=== PATIENT | female | born 1970 | race Caucasian/White ===

== ENCOUNTER 2018-10-19 08:49 | Emergency (ER) | payer SELFPAY ==
[~2018-10-19] VITALS: Ht 152.4 cm; Wt 54.4 kg
[2018-10-19] MEDS ORDERED: INDOMETHACIN50 MG PO (09:33)
[2018-10-19] MEDS ORDERED: AMOXICILLIN500 MG PO (09:33)
== END 2018-10-19 09:40 | disposition home or self-care (01) ==
LOC: ED 08:49
DX: K08.89 Other specified disorders of teeth and supporting structures (principal); F17.200 Nicotine dependence, unspecified, uncomplicated
CPT/HCPCS: 99282

== ENCOUNTER 2019-10-07 20:28 | Emergency (ER) | payer BC ==
[~2019-10-07] VITALS: Ht 152.4 cm; Wt 54.4 kg
[~2019-10-07 20:28] MED LIST: AMOXICILLIN500 MG PO; INDOMETHACIN50 MG PO
== END 2019-10-07 22:49 | disposition home or self-care (01) ==
LOC: ED 20:28
DX: R30.0 Dysuria (principal); R11.0 Nausea; R10.9 Unspecified abdominal pain; Z87.891 Personal history of nicotine dependence
CPT/HCPCS: 36415; 80053; 81001; 83690; 85025; 99284

== ENCOUNTER 2020-07-07 12:25 | Day surgery (SDC) | payer BC ==
[~2020-07-07] VITALS: Ht 152.4 cm; Wt 54.4 kg
--- NOTE | 2020-07-07 17:56 | NUR ---
50YR OLD FEMALE, BROUGHT TO ROOM 119 VIA WC FROM DAY SURGERY, PT IS A/O, DENIES ANY DIFFICULTY BREATHING, OXIMETER 97% ON RA, B/P 114/58, P 77, R 14 T 99.0. PT HOLDING FOR UPPER ENDOSCOPY AND FOREIGN BODY REMOVAL @ 1999. PT ATE STEAK. ORIENTED TO ROOM AND CALL LIGHT. WATCHING TV. DENIES ANY NEEDS.
--- NOTE | 2020-07-07 18:08 | NUR ---
CONT. PULSE OXIMETER PLACED, 98% ON RA. CALL LIGHT IN EASY REACH, DENIES ANY NEEDS.
--- NOTE | 2020-07-07 19:10 | NUR ---
uP IN CHAIR, WATCHING TV, ROOM AIR, NPO WAITING TO GO TO SURGERY, DENIES C/O SWALLOWING PROBLEMS AT THIS TIME, DID OWN MOUTH CARE. IVF INFUSING, NO C/O SOB , CHOCKING OT SWALLOWING PROBLEMS
--- NOTE | 2020-07-07 19:50 | NUR ---
VITALS DONE PRIOR TO PT LEAVING FOR OPERATION, NO FURHTER NEEDS AT THIS TIME
--- NOTE | 2020-07-07 20:16 | NUR ---
TO OR VIA STRETCHER WITH REAL ESTATE EXECUTIVE ASSISTANT,
--- NOTE | 2020-07-07 20:51 | NUR ---
07/07/202050 Sheets,Eula 204 PT ARRIVED TO PACU PT TALKING TO RN. PT DENIES PAIN AND NAUSEA. VSS.
--- NOTE | 2020-07-07 21:11 | NUR ---
2109 - back from or, alert and oriented, up to br, rac iv infusing.
--- NOTE | 2020-07-07 22:00 | NUR ---
PT UP TO VOID AT THIS TIME, NOW BACK IN BED, PT STATES SHE IS WORKING ON SMALL SIPS ABOUT EVERY TEN MINUTES, DENIES FURHTER NEEDS AT THIS TIME
--- NOTE | 2020-07-07 22:46 | NUR ---
pT UP TO BR, VOIDED AND DRESSED UP. READY FOR DC, SL R AC, REMOVED, INTACT IV. NO C/O PAIN, DRY COUGH PRESENT, TOLERATING LIQUIDS WELL. DC INSTRUCTIONS GIVEN VERBAL AND WRITTEN, RETURN BACK VERBAL INSTRUCTIONS. STATED UNDERSTANDING
--- NOTE | 2020-07-07 22:50 | NUR ---
PT DOWN THE REYNA FOR DISCHARGE, INTO SON'S CAR
--- NOTE | 2020-07-07 22:51 | NUR ---
2250 - DC HOME VIA W/C TO HOME IN PROIVATE CAR, NO C/O PAIN, ALERT AND ORIENTED, NO SWALLOW INSTRUCTIONS
--- NOTE | 2020-07-07 22:52 | NUR ---
2250 - dc home via w/c to home in private car with all belongings and dc instrutions. no swallowing c/o.
--- NOTE | 2020-07-08 09:55 | OR ---
[facility] [address], [place] [address] Signed DATE OF OPERATION: 07/07/2020 SURGEON: Tristen Hwang MD PREOPERATIVE DIAGNOSIS: Esophageal foreign body (steak). POSTOPERATIVE DIAGNOSES: 1. Esophageal foreign body (steak). 2. Mild distal gastritis. PROCEDURE: EGD with foreign body removal with CLOtest and biopsies of the antrum. ESTIMATED BLOOD LOSS: None. INDICATIONS: Dyan is a 50-year-old female who had some trouble with solid foods getting stuck for the last few months. Today at lunch, she was eating steak and it became lodged in her esophagus. She felt like it was in the mid esophagus. She came to the emergency room for evaluation. I was actually called urgently to the emergency room by ER doctor to see her. She was actually doing well by the time I came down the hallway. She was sitting in bed with no respiratory difficulties whatsoever. We had planned to take her directly over to the operating room earlier today for her upper endoscopy. However, there were a couple of elective cases still going and we got bumped by an emergent . In the meantime, we placed her down on the floor with some IV fluids with plans to perform the procedure as soon as we had our crew available. I had explained to Dyan actually this is quite common. She was quite concerned there could be cancer. In fact, I have been to find cancer in these patients acutely. We had discussed upper endoscopy in detail. We reviewed the nature of the test along with its risks including, but not limited to gas bloating, crampy abdominal pain, bleeding, perforation requiring surgery, and missed diagnosis. As always, to protect the airway, we have an anesthesia provider help this in these situations with general endotracheal tube intubation. She had expressed understanding and wished to proceed. PROCEDURE NOTE: Dyan was taken to the endoscopy suite and placed in the supine semi-recumbent position. She was placed under general endotracheal tube anesthesia. The adult gastroscope was then introduced and advanced under direct visualization of camera without difficulty. Electronically Signed By: TRISTEN HWANG MD 07/08/20 0955 PATIENT NAME: DYAN ROB OPERATIVE REPORT DATE OF : 68 REPORT #: [id number] PHYSICIAN: TRISTEN HWANG MD PCP: NO PRIMARY CARE PHYSICIAN REPORT IS CONFIDENTIAL AND NOT TO BE RELEASED WITHOUT AUTHORIZATION [facility] [address], [place] [address] Signed We saw the steak right at the GE junction. It was a bit loose, so we actually captured the whole piece with our basket and brought it out back through the oropharynx. We reintroduced our scope and as we went through the GE junction, we did not see any obvious stricture or tumor. Very minimal inflammation. We could see that she had just very minimal amount of inflammatory changes in the distal stomach. Consequently, we took a biopsy of the antrum for CLOtest as well as pathologic review. The pyloric channel and the duodenum were unremarkable. The scope was brought back in the stomach. Upon retroflexion of the scope, we did not see any obvious hiatal hernia or issues around the cardia. The scope was withdrawn back up through the area of the GE junction, which was compliant without stricture. Really, no disruption to the Z-line. No Agrawal's mucosa. No distal esophagitis other than a little irritation from the piece of steak. The middle and upper esophagus were unremarkable. After this, the gas had been suctioned out and the gastroscope removed. Dyan tolerated the procedure quite well. She was weaned from anesthesia, extubated in the endoscopy suite and taken to the recovery room in stable condition. Tristen Hwang MD ALB/MODL /[id number] Copies: ~ Electronically Signed By: TRISTEN HWANG MD 07/08/20 0955 PATIENT NAME: DYAN ROB OPERATIVE REPORT DATE OF : 68 REPORT #: [id number] PHYSICIAN: TRISTEN HWANG MD PCP: NO PRIMARY CARE PHYSICIAN REPORT IS CONFIDENTIAL AND NOT TO BE RELEASED WITHOUT AUTHORIZATION
--- NOTE | 2020-07-08 09:55 | CONS ---
[facility] [address] [place], [place] [address] Signed DATE OF CONSULTATION: 07/07/2020 CHIEF COMPLAINT: Esophageal foreign body (steak). HISTORY OF PRESENT ILLNESS: Dyan is a 50-year-old female, who does smoke, but does not drink. She said the last several months she has been having trouble with solids getting stuck in her mid esophageal area. Today, she ate a single piece of steak at lunch and she feels like it is stuck in her mid esophagus. After a few minutes then she has to spit up the saliva. She came to emergency room for evaluation. She is pretty miserable overall, but it seems to be doing better at this point. There are no difficulties with her airways whatsoever. I was asked to see her urgently by our ER physician with respect to the above. PAST MEDICAL HISTORY: None. PAST SURGICAL HISTORY: Oral surgery. ALLERGIES: None. MEDICATIONS: None. SOCIAL HISTORY: She does smoke, but does not drink. Mario Clemons is her son at [phone]. She has no primary care provider. FAMILY HISTORY: Unremarkable. REVIEW OF SYSTEMS: She had 10 systems reviewed and really seems to be pretty healthy otherwise. PHYSICAL EXAMINATION: VITAL SIGNS: Her blood pressure is 144/90, heart rate 87, respiratory rate 16, temperature is 97.6. She is 100% on room air. She is 5 feet tall, 54 kg. GENERAL: Dyan is a 50-year-old female, sitting upright in her ER bed. She has a spit bag in her hand. She is able to control her saliva in her airway. LUNGS: Clear to auscultation bilaterally. Electronically Signed By: TRISTEN MALDONADO MD 07/08/20 0955 PATIENT NAME: DYAN ROB CONSULTATION DATE OF : 68 REPORT #: [id number] PHYSICIAN: TRISTEN MALDONADO MD PCP: NO PRIMARY CARE PHYSICIAN REPORT IS CONFIDENTIAL AND NOT TO BE RELEASED WITHOUT AUTHORIZATION [facility] [address] [place], [place] [address] Signed HEART: Regular rate and rhythm without murmur. ABDOMEN: Soft, flat, nontender. LABORATORY DATA: Her white blood count is 8.3 with a hemoglobin of 13, platelets 309. Her EKG is pending. RADIOGRAPHIC STUDIES: None. ASSESSMENT AND PLAN: Dyan is a 50-year-old female, who presents with an esophageal foreign body, namely steak. I reviewed with her upper endoscopy in detail. She understands the nature of the test along with the risks including, but not limited to gas bloating, crampy abdominal pain, bleeding, perforation requiring surgery, and missed diagnosis. As always in these situations, we do have an anesthesia help us with increased monitoring sedation with propofol. She had expressed understanding and wished to proceed. MD PAULINO Ford/SONIAL /[id number] cc: Tristen Maldonado MD Copies: TRISTEN MALDONADO MD ~ Electronically Signed By: TRISTEN MALDONADO MD 07/08/20 0955 PATIENT NAME: DYAN ROB CONSULTATION DATE OF : 68 REPORT #: [id number] PHYSICIAN: TRISTEN MALDONADO MD PCP: NO PRIMARY CARE PHYSICIAN REPORT IS CONFIDENTIAL AND NOT TO BE RELEASED WITHOUT AUTHORIZATION
--- NOTE | 2020-07-08 17:40 | EKG ---
[facility] [address] [facility] [place] [address] Signed Normal sinus rhythm Nonspecific ST abnormality Abnormal ECG No previous ECGs available Confirmed by MAGNUS BEYER MD ([id number]) on 07/08/2020 5:40:48 PM Electronically Signed By: MAGNUS BEYER MD 07/08/201739 PATIENT NAME: WING ROB SADAFLATONIA Electrocardiogram DATE OF : 68 PHYSICIAN: MAGNUS BEYER MD REPORT #: [id number] REPORT IS CONFIDENTIAL AND NOT TO BE RELEASED WITHOUT AUTHORIZATION
--- NOTE | 2020-07-12 11:56 | PATH ---
[facility] [address] [place], [place] [address] Signed SPECIMEN(S): A ANTRUM/PYLORUS SPECIMEN SOURCE: A. ANTRUM/PYLORUS CLINICAL HISTORY: Foreign body, gastritis. MICROSCOPIC DESCRIPTION: Histologic sections of all submitted blocks are examined by light microscopy. These findings, together with the gross examination, support the pathologic diagnosis. FINAL PATHOLOGIC DIAGNOSIS: Stomach, antrum/pylorus, biopsy: - Antral mucosa with no histopathologic abnormality. - Negative for Helicobacter organisms on HE stain. - Negative for dysplasia or malignancy. NAL:cml:C2NR GROSS DESCRIPTION: The specimen, labeled "Naya Rob, #1," and designated on the requisition "antrum biopsy," is received in formalin and consists of one gilbert soft tissue fragment that measures 0.4 cm in greatest dimension. The specimen is entirely submitted in cassette (A1). FB (under the direct supervision of a pathologist) The Gross Description was prepared using a voice recognition system. The report was reviewed for accuracy; however, sound-alike word errors, addition and/or deletions may occur. If there is any question about this report, please contact Client Services. PERFORMING LABORATORY: The technical component was performed by [facility], [address] [place] [id number] (Wood Block Artist: Bianca Sandhu MD; CLIA# [id number]). [facility], [address] [address] (CLIA# [id number]). Diagnostician: Ngozi Shannon MD Pathologist Electronically Signed 07/12/2020 PATIENT NAME: WING ROB PATHOLOGY DATE OF : 68 REPORT #: [id number] PHYSICIAN: [facility] PATHOLOG[facility] PCP: NO PRIMARY CARE PHYSICIAN REPORT IS CONFIDENTIAL AND NOT TO BE RELEASED WITHOUT AUTHORIZATION [address] [place], [place] [address] Signed Copies: ~ PATIENT NAME: WING ROB PATHOLOGY DATE OF : 68 REPORT #: [id number] PHYSICIAN: INCYTE PATHOLOGY PCP: NO PRIMARY CARE PHYSICIAN REPORT IS CONFIDENTIAL AND NOT TO BE RELEASED WITHOUT AUTHORIZATION
== END 2020-07-07 22:25 | disposition home or self-care (01) ==
LOC: ED 12:25 → DSVR 14:02 → DS 14:02
PROVIDERS: ATTEND Colon & Rectal Surgery
PROC: 0DB48ZX Excision of Esophagogastric Junction, Via Natural or Artificial Opening Endoscopic, Diagnostic (ICD-10-PCS; 2020-07-07)
PROC: 0DC58ZZ Extirpation of Matter from Esophagus, Via Natural or Artificial Opening Endoscopic (ICD-10-PCS; principal; 2020-07-07 14:00)
DX: T18.128A Food in esophagus causing other injury, initial encounter (principal); K29.70 Gastritis, unspecified, without bleeding; F17.200 Nicotine dependence, unspecified, uncomplicated; Z91.018 Allergy to other foods
CPT/HCPCS: 80053; 83690; 85025; 86677; 93005; 93010; 99285-25; C9803; J1100; J2001; J2405; J2704; J3010; J7040; U0003